=== PATIENT | female | born 1990 | race African-American/Black ===

== ENCOUNTER 2023-05-29 09:52 | Inpatient (IN) ==
[2023-05-29] MEDS ORDERED: Lactated Ringers 1000 ml BAG 1,000 ML IV ONE (10:43)
[2023-05-29] MEDS ORDERED: Lidocaine 1% VIAL 10 MG/ML 30 ML VIAL INJ PRN (10:43)
[2023-05-29] MEDS ORDERED: Oxytocin in LR 20,000 MILLI.UNIT/1,000 ML BAG IV SCH ×2 (10:45→21:25)
[2023-05-29 11:11] LABS: ABS Lymphocytes 1.6 10^3/uL (1.0-4.8); ABS Monocytes 0.6 10^3/uL (0.0-0.9); ABS Neutrophils 6.2 10^3/uL (1.5-7.6); Eosinophil % 0.6 %; Hematocrit 34.9 % (35-45); Lymphocyte % 18.8 %; Mean Corpuscular Hgb Conc 34.5 g/dL (31-36); Mean Corpuscular Volume 92.9 fL (80-97); Mean Platelet Volume 10.1 fL (7.5-11.2); Platelet Count 123 10^3/uL (150-450); Red Blood Count 3.76 10^6/uL (3.63-4.92); Red Cell Distribution Width 14.6 % (12-17); White Blood Count 8.5 10^3/uL (3.8-11.8)
[2023-05-29 11:35] LABS: Urine Benzodiazepine Screen None Detected (None Detect); Urine Cannabinoids Screen None Detected (None Detect); Urine Opiates Screen None Detected (None Detect)
[2023-05-29] MEDS: Lactated Ringers 1000 ml BAG 1,000 ML IV SCH ×2 (11:51→18:14)
[2023-05-29] MEDS ORDERED: fentaNYL 100 mcg/2 ml 50 MCG/ML VIAL IV SLOW PU ONE (17:50)
[2023-05-29] MEDS ORDERED: Witch Hazel PAD JAR TOPICAL PRN (21:23)
[2023-05-29] MEDS ORDERED: Dibucaine 1% OINT 28.35 GM TUBE PR PRN (21:23)
[2023-05-29] MEDS ORDERED: Lactated Ringers 1000 ml BAG 1,000 ML IV SCH (22:00)
[2023-05-30 07:31] LABS: ABS Monocytes 1.5 10^3/uL (0.0-0.9); ABS Neutrophils 13.5 10^3/uL (1.5-7.6); Eosinophil % 0.2 %; Hematocrit 33.1 % (35-45); Hemoglobin 11.4 g/dL (11.5-14.3); Lymphocyte % 11.5 %; Mean Corpuscular Hemoglobin 31.8 pg (27-33); Mean Corpuscular Hgb Conc 34.3 g/dL (31-36); Mean Corpuscular Volume 92.6 fL (80-97); Mean Platelet Volume 10.5 fL (7.5-11.2); Platelet Count 127 10^3/uL (150-450); Red Blood Count 3.57 10^6/uL (3.63-4.92); Red Cell Distribution Width 14.7 % (12-17)
[2023-05-30] MEDS ORDERED: Tetan/Diph/Pertus SYR(Tdap) 0.5 ML SYR(BOOSTRIX) use SYR contains LATEX IM ONE (09:00)
[2023-05-30] MEDS ORDERED: Varicella Virus Vaccine Live 0.5 ML VIAL SUBCUT ONE (09:00)
[2023-05-31 07:53] VITALS: BP 115/60
== END 2023-05-31 11:45 | disposition home or self-care (01) | DRG 807 ==
LOC: MCHOBOUT 09:52 → MCHOB 10:01
PROVIDERS: ADMIT Midwife; ATTEND Midwife